=== PATIENT | male | born 1970 | race Caucasian/White ===

== ENCOUNTER 2025-11-22 12:41 | Emergency (ER) | payer OTHER, SELFPAY ==
[2025-11-22] VITALS (27 sets, daily range): BP systolic 110–169; BP diastolic 59–98; PULSE 81–114; RESP 12–45; TEMP 31–37.5; O2SAT 83–97; BMI 50.4
--- NOTE | 2025-11-22 13:29 | DI.RAD.S_ITS ---
P the ROCEDURE: XR CHEST 1V INDICATIONS: Shortness of breath TECHNIQUE: One view of the chest was acquired. COMPARISON: None. FINDINGS: Surgical changes and devices: None. Lungs and pleura: Eventration right hemidiaphragm. Diffuse interstitial prominence. Suggestion of mild central vascular congestion. Hazy opacities of the bilateral costophrenic angles suggestive of small pleural effusions. No pneumothorax. Mediastinum: Mediastinal contours appear normal. Heart size is enlarged. Bones and chest wall: No suspicious bony lesions. Overlying soft tissues appear unremarkable. IMPRESSION: Cardiomegaly with findings consistent with pulmonary edema/CHF. Dictated by: Tyrese Wetzel M.D. on 11/22/2025 at 14:36 Approved by: Tyrese Wetzel M.D. on 11/22/2025 at 14:37
--- NOTE | 2025-11-22 13:29 | EKG_ITS ---
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
[2025-11-22] MEDS: ALBUTEROL/IPRATROPIUM 3 ML AMPUL INH (13:48)
[2025-11-22 14:07] LABS: Hematocrit 46.5 % (41-53); Hemoglobin 15.7 g/dL (13.5-17.5); Mean Corpuscular HGB Conc 33.8 % (30-36); Mean Corpuscular Hemoglobin 28.7 PG (26-34); Mean Corpuscular Volume 84.8 fL (80-100); Platelet Count 124 X10^3/uL (150-400)
[2025-11-22 14:09] LABS: INR 1.1 (0.9-1.3); Prothrombin Time 13.0 SECONDS (9.4-12.5)
[2025-11-22 14:11] LABS: Add Manual Diff / Slide Review YES
[2025-11-22 14:23] LABS: Alanine Aminotransferase 64 IU/L (<50); Albumin 3.3 g/dL (3.5-5.0); Albumin Globulin Ratio 1.0 (1.0-2.8); Alkaline Phosphatase 107 U/L (38-126); Blood Urea Nitrogen 19 mg/dL (9-20); Calcium 8.4 mg/dL (8.4-10.2); Carbon Dioxide 28 mmol/L (22-32); Chloride 98 mmol/L (98-107); Estimated Glomerular Filt Rate > 60 mL/min (>60); Globulin 3.2 g/dL (1.7-4.1); Glucose 105 mg/dL (70-99); HEMOLYSIS 28 (0-50); Potassium 4.1 mmol/L (3.4-5.1); Sodium 134 mmol/L (137-145); Total Protein 6.5 g/dL (6.3-8.2)
[2025-11-22 14:25] LABS: Lactate (Lactic Acid) 1.8 mmol/L (0.7-2.1)
[2025-11-22 14:35] LABS: NT-proBNP (BNP-Adult 18+) 4080 pg/mL (<125); Troponin I 0.022 ng/mL (0.01-0.034)
[2025-11-22 14:41] LABS: Atypical Lymphocytes Percent 22.0 %; Band Neutrophils Percent 1.0 % (3-7); Basophils Percent Manual 1.0 % (0-1); Lymphocytes Percent Manual 31.0 % (25-45); Monocytes Percent Manual 12.0 % (2-11); Neutrophils Absolute Manual 5882 /uL (3000-5900); Procalcitonin 0.359 ng/mL (<0.5); Segmented Neutrophils Percent 33.0 % (38-70); Total Cells Counted 100
[2025-11-22 14:42] LABS: Anisocytosis 1+; Microcytosis 1+
--- NOTE | 2025-11-22 14:53 | DI.US.S_ITS ---
PROCEDURE: US PERIPH VENOUS LOW EXTREM RT INDICATIONS: swelling TECHNIQUE: Real-time imaging, as well as color and pulse Doppler interrogation, were performed of the lower extremity deep veins from the inguinal ligament to the popliteal fossa, with documentation of the visualized calf veins. COMPARISON: None. FINDINGS: The common femoral, femoral, popliteal, and the visualized calf veins are normally compressible, and free of intraluminal thrombus. Color and pulse Doppler demonstrate normal phasic intraluminal flow. There is normal augmentation response to distal compression maneuver. Calf veins are poorly visualized. Greater saphenous vein not visualized as patient terminated exam early. IMPRESSION: No findings of lower extremity deep venous thrombosis. Dictated by: Truong Alonso M.D. on 11/22/2025 at 15:58 Approved by: Truong Alonso M.D. on 11/22/2025 at 15:59
--- NOTE | 2025-11-22 15:09 | ED.SOB ---
HPI - SOB/Dyspnea General Chief Complaint: Shortness of Breath/Dyspnea Stated Complaint: [facility] ref, couldn't regulate oxygen Time Seen by Provider: 11/22/25 13:42 Source: patient Mode of arrival: Ambulatory Limitations: no limitations History of Present Illness HPI Narrative: 55-year-old gentleman morbidly obese smoker presents with cough shortness breath dyspnea on exertion that has been ongoing since Thanksgiving worse in the past week. Cough initially was productive but now nonproductive, but denies any fever, chills, bodyaches, sore throat, back pain, chest pain, abdominal pain, nausea, vomiting diarrhea, constipation, leg pain, or leg swelling. He has not seen a doctor in over 10 years in his not on any medicines other than Viagra for which he took his last dose a month ago. Related Data Allergies Allergy/AdvReac Type Severity Reaction Status Date / Time No Known Drug Allergies Allergy Verified 11/22/25 13:24 Review of Systems Review of Systems ROS Unobtainable: All systems reviewed & are unremarkable except as noted in HPI and below Exam Narrative Exam Narrative: GENERAL: [84] year old patient appears stated age. Well-developed patient, in mild distress. HEAD: Atraumatic. Normocephalic. EYES: Pupils equal round and reactive. Extraocular motions intact. No scleral icterus. No injection or drainage. ENT: Nose without bleeding, purulent drainage. Throat without erythema, tonsillar hypertrophy or exudate. Airway patent. NECK: Trachea midline. Non tender CARDIOVASCULAR: Regular rate and rhythm without murmurs, gallops, or rubs. RESPIRATORY: Clear to auscultation. Breath sounds equal bilaterally. No wheezes, rales, or rhonchi. GASTROINTESTINAL: Abdomen soft, non-tender, nondistended. EXTREMITIES: No edema or joint tenderness. BACK: Nontender without deformity or crepitance. No flank tenderness. NEURO: AOx3. SKIN: No rash or erythema of visible areas Initial Vital Signs Initial Vital Signs: Vital Signs Temperature 99.5 F 11/22/25 13:22 Pulse Rate 114 H 11/22/25 13:22 Respiratory Rate 26 H 11/22/25 13:22 Blood Pressure 114/72 11/22/25 13:22 Pulse Oximetry 84 L 11/22/25 13:22 Oxygen Delivery Method Room Air 11/22/25 13:22 Course Orders Ordered: Discontinued Medications Albuterol/Ipratropium (Albuterol/Ipratropium 3 Ml Ampul) 3 ml INH NOW ONE Stop: 11/22/25 13:46 Last Admin: 11/22/25 13:48 Dose: 3 ml Documented By: SHAHID Apixaban (Apixaban 5 Mg Tablet) 10 mg PO NOW ONE Stop: 11/22/25 17:10 Last Admin: 11/22/25 18:20 Dose: Not Given Documented By: MELODY Furosemide (Furosemide 40 Mg/4 Ml Vial) 40 mg IV NOW ONE Stop: 11/22/25 15:12 Last Admin: 11/22/25 15:19 Dose: 40 mg Documented By: MELODY Heparin Sodium (Porcine) (Heparin 5,000 Unit/Ml Vial) 10,000 unit 60 unit/kg (98062 unit) IV NOW ONE Stop: 11/22/25 17:23 Last Admin: 11/22/25 18:20 Dose: 10,000 unit Documented By: MELODY Ceftriaxone Sodium 2,000 mg/ (Sodium Chloride) 100 mls @ 200 mls/hr IV NOW ONE Stop: 11/22/25 15:19 Last Infusion: 11/22/25 16:20 Dose: Infused Documented By: Admin: 11/22/25 15:49 Dose: 200 mls/hr Documented By: MELODY Heparin Sodium/Dextrose (Heparin Drip) 25,000 unit in 500 mls @ 60.745 mls/hr IV CONT JES; Protocol Last Admin: 11/22/25 20:41 Dose: 11.85 units/kg/hr, 40 mls/hr Documented By: MELODY Co-signed By: HAZEL Vital Signs Vital signs: Vital Signs - 8 hr 11/22/25 14:30 11/22/25 14:30 11/22/25 15:00 Pulse Rate 101 H 102 H Respiratory Rate Blood Pressure 141/68 H Pulse Oximetry 93 Oxygen Delivery Method Oxygen Flow Rate Fraction of Inspired Oxygen 11/22/25 15:01 11/22/25 15:01 11/22/25 15:35 Pulse Rate 101 H 103 H Respiratory Rate 41 H Blood Pressure 169/98 H Pulse Oximetry 93 83 L Oxygen Delivery Method Nasal Cannula Oxygen Flow Rate 6 Fraction of Inspired Oxygen 11/22/25 15:36 11/22/25 15:36 11/22/25 16:00 Pulse Rate 105 H 81 Respiratory Rate 45 H Blood Pressure 169/85 H Pulse Oximetry 85 L 89 L Oxygen Delivery Method Oxygen Flow Rate Fraction of Inspired Oxygen 11/22/25 16:30 11/22/25 16:30 11/22/25 17:00 Pulse Rate 104 H 100 H Respiratory Rate Blood Pressure 169/85 H Pulse Oximetry 97 89 L Oxygen Delivery Method Nasal Cannula Oxygen Flow Rate 4 Fraction of Inspired Oxygen 40 11/22/25 17:30 11/22/25 18:00 11/22/25 18:30 Pulse Rate 95 H 100 H 97 H Respiratory Rate Blood Pressure Pulse Oximetry 92 87 L 93 Oxygen Delivery Method Oxygen Flow Rate Fraction of Inspired Oxygen 11/22/25 19:00 11/22/25 19:30 11/22/25 20:00 Pulse Rate 98 H 99 H 102 H Respiratory Rate Blood Pressure Pulse Oximetry 93 92 88 L Oxygen Delivery Method Nasal Cannula Oxygen Flow Rate 5 Fraction of Inspired Oxygen 11/22/25 20:30 11/22/25 21:00 11/22/25 21:30 Pulse Rate 97 H 95 H 97 H Respiratory Rate Blood Pressure Pulse Oximetry 89 L 90 L 94 Oxygen Delivery Method Nasal Cannula Nasal Cannula Oxygen Flow Rate 5 5 Fraction of Inspired Oxygen MDM - SOB/Dyspnea Lab Data 11/22/25 13:41 11/22/25 13:41 Labs: Lab Results 11/22/25 11/22/25 11/22/25 Range/Units 13:41 15:22 15:29 WBC 17.3 H (4.5-11.0) X10^3/uL RBC 5.48 (4.5-5.9) X10^6/uL Hgb 15.7 (13.5-17.5) g/dL Hct 46.5 (41-53) % MCV 84.8 (80-100) fL MCH 28.7 (26-34) PG MCHC 33.8 (30-36) % RDW 14.7 (11.6-14.8) % Plt Count 124 L (150-400) X10^3/uL Neut % (Auto) Not Reportable Lymph % (Auto) Not Reportable [place] % (Auto) Not Reportable Eos % (Auto) Not Reportable Baso % (Auto) Not Reportable Lymph # (Auto) Not Reportable [place] # (Auto) Not Reportable Baso # (Auto) Not Reportable Total Counted 100 Seg Neutrophils % 33.0 L (38-70) % Band Neutrophils % 1.0 L (3-7) % Lymphocytes % (Manual) 31.0 (25-45) % Atypical Lymphs % 22.0 H ( - 0) % Monocytes % (Manual) 12.0 H (2-11) % Basophils % (Manual) 1.0 (0-1) % Neutrophils # (Manual) 5882 (6966-2374) /uL RBC Morphology See below Anisocytosis 1+ H Microcytosis 1+ H PT 13.0 H (9.4-12.5) SECONDS INR 1.1 (0.9-1.3) VBG pH 7.46 H (7.33-7.43) VBG pCO2 40.0 L (45-50) mmHg VBG pO2 30 L (35-45) mmHg VBG HCO3 29 H (24-28) mmol/L VBG Total CO2 27 (24-29) mmol/L VBG O2 Saturation 62 L (70-75) % VBG Base Excess 4.4 H (0-4) mmol/L Sodium 134 L (137-145) mmol/L Potassium 4.1 (3.4-5.1) mmol/L Chloride 98 (98-107) mmol/L Carbon Dioxide 28 (22-32) mmol/L BUN 19 (9-20) mg/dL Creatinine 1.31 H (0.66-1.25) mg/dL Estimated GFR > 60 (>60) mL/min BUN/Creatinine Ratio 14.5 (6-22) Glucose 105 H (70-99) mg/dL Lactate 1.8 (0.7-2.1) mmol/L Calcium 8.4 (8.4-10.2) mg/dL Total Bilirubin 0.8 (0.2-1.3) mg/dL AST 49 (17-59) IU/L ALT 64 H (<50) IU/L Alkaline Phosphatase 107 (38-126) U/L Troponin I 0.022 (0.01-0.034) ng/mL NT-Pro-B Natriuret Pep 4080 H (<125) pg/mL Total Protein 6.5 (6.3-8.2) g/dL Albumin 3.3 L (3.5-5.0) g/dL Globulin 3.2 (1.7-4.1) g/dL Albumin/Globulin Ratio 1.0 (1.0-2.8) Procalcitonin 0.359 (<0.5) ng/mL Chlamy pneumoniae PCR Not detected (Not Detect) Adenovirus (PCR) Not detected (Not Detect) B. pertussis DNA (PCR) Not detected (Not Detect) B.parapertussis DNA PCR Not detected (Not Detecte) Coronavirus OC43 (PCR) Not detected (Not Detect) Coronavirus HKU1 (PCR) Not detected (Not Detect) Coronavirus 229E (PCR) Not detected (Not Detect) SARS-CoV-2 (PCR) Not detected (Not Detecte) Coronavirus NL63 (PCR) Not detected (Not Detect) Human Metapneumovir PCR Not detected (Not Detect) Influenza Type A (PCR) Not detected (Not Detect) Influenza Type B (PCR) Not detected (Not Detect) M. pneumoniae (PCR) Not detected (Not Detect) Parainfluenza 1 (PCR) Not detected (Not Detect) Parainfluenza 2 (PCR) Not detected (Not Detect) Parainfluenza 3 (PCR) Not detected (Not Detect) Parainfluenza 4 (PCR) Not detected (Not Detect) RSV (PCR) Not detected (Not Detect) Entero/Rhino (PCR) Not detected (Not Detect) 11/22/25 Range/Units 16:16 WBC (4.5-11.0) X10^3/uL RBC (4.5-5.9) X10^6/uL Hgb (13.5-17.5) g/dL Hct (41-53) % MCV (80-100) fL MCH (26-34) PG MCHC (30-36) % RDW (11.6-14.8) % Plt Count (150-400) X10^3/uL Neut % (Auto) Lymph % (Auto) [place] % (Auto) Eos % (Auto) Baso % (Auto) Lymph # (Auto) [place] # (Auto) Baso # (Auto) Total Counted Seg Neutrophils % (38-70) % Band Neutrophils % (3-7) % Lymphocytes % (Manual) (25-45) % Atypical Lymphs % ( - 0) % Monocytes % (Manual) (2-11) % Basophils % (Manual) (0-1) % Neutrophils # (Manual) (0261-5294) /uL RBC Morphology Anisocytosis Microcytosis PT (9.4-12.5) SECONDS INR (0.9-1.3) VBG pH (7.33-7.43) VBG pCO2 (45-50) mmHg VBG pO2 (35-45) mmHg VBG HCO3 (24-28) mmol/L VBG Total CO2 (24-29) mmol/L VBG O2 Saturation (70-75) % VBG Base Excess (0-4) mmol/L Sodium (137-145) mmol/L Potassium (3.4-5.1) mmol/L Chloride (98-107) mmol/L Carbon Dioxide (22-32) mmol/L BUN (9-20) mg/dL Creatinine (0.66-1.25) mg/dL Estimated GFR (>60) mL/min BUN/Creatinine Ratio (6-22) Glucose (70-99) mg/dL Lactate 1.9 (0.7-2.1) mmol/L Calcium (8.4-10.2) mg/dL Total Bilirubin (0.2-1.3) mg/dL AST (17-59) IU/L ALT (<50) IU/L Alkaline Phosphatase (38-126) U/L Troponin I 0.024 (0.01-0.034) ng/mL NT-Pro-B Natriuret Pep (<125) pg/mL Total Protein (6.3-8.2) g/dL Albumin (3.5-5.0) g/dL Globulin (1.7-4.1) g/dL Albumin/Globulin Ratio (1.0-2.8) Procalcitonin (<0.5) ng/mL Chlamy pneumoniae PCR (Not Detect) Adenovirus (PCR) (Not Detect) B. pertussis DNA (PCR) (Not Detect) B.parapertussis DNA PCR (Not Detecte) Coronavirus OC43 (PCR) (Not Detect) Coronavirus HKU1 (PCR) (Not Detect) Coronavirus 229E (PCR) (Not Detect) SARS-CoV-2 (PCR) (Not Detecte) Coronavirus NL63 (PCR) (Not Detect) Human Metapneumovir PCR (Not Detect) Influenza Type A (PCR) (Not Detect) Influenza Type B (PCR) (Not Detect) M. pneumoniae (PCR) (Not Detect) Parainfluenza 1 (PCR) (Not Detect) Parainfluenza 2 (PCR) (Not Detect) Parainfluenza 3 (PCR) (Not Detect) Parainfluenza 4 (PCR) (Not Detect) RSV (PCR) (Not Detect) Entero/Rhino (PCR) (Not Detect) Imaging Data Chest x-ray: Radiologist's Impression: [place] [address] XRay Report Signed Patient: Tyrese Good MR#: [id number] : 1970 Acct:[id number] Age/Sex: 55 / M Date of Service: 11/22/25 Loc: ED Accession Number: [id number] Procedure: XR chest 1V Ordering Provider: Saida Pang D.O. the ROCEDURE: XR CHEST 1V INDICATIONS: Shortness of breath TECHNIQUE: One view of the chest was acquired. COMPARISON: None. FINDINGS: Surgical changes and devices: None. Lungs and pleura: Eventration right hemidiaphragm. Diffuse interstitial prominence. Suggestion of mild central vascular congestion. Hazy opacities of the bilateral costophrenic angles suggestive of small pleural effusions. No pneumothorax. Mediastinum: Mediastinal contours appear normal. Heart size is enlarged. Bones and chest wall: No suspicious bony lesions. Overlying soft tissues appear unremarkable. IMPRESSION: Cardiomegaly with findings consistent with pulmonary edema/CHF. Dictated by: Tyrese Wetzel M.D. on 11/22/2025 at 14:36 Approved by: Tyrese Wetzel M.D. on 11/22/2025 at 14:37 US - DVT: Radiologist's Impression: [address] [address] Ultrasound Report Signed Patient: Tyrese Good MR#: [id number] : 1970 Acct:[id number] Age/Sex: 55 / M Date of Service: 11/22/25 Loc: ED Accession Number: [id number] Procedure: US periph venous low extrem rt Ordering Provider: Amelia Benedict PA-C PROCEDURE: US PERIPH VENOUS LOW EXTREM RT INDICATIONS: swelling TECHNIQUE: Real-time imaging, as well as color and pulse Doppler interrogation, were performed of the lower extremity deep veins from the inguinal ligament to the popliteal fossa, with documentation of the visualized calf veins. COMPARISON: None. FINDINGS: The common femoral, femoral, popliteal, and the visualized calf veins are normally compressible, and free of intraluminal thrombus. Color and pulse Doppler demonstrate normal phasic intraluminal flow. There is normal augmentation response to distal compression maneuver. Calf veins are poorly visualized. Greater saphenous vein not visualized as patient terminated exam early. IMPRESSION: No findings of lower extremity deep venous thrombosis. Dictated by: Truong Alonso M.D. on 11/22/2025 at 15:58 Approved by: Truong Alonso M.D. on 11/22/2025 at 15:59 ECG Data Interpretation: NSR HR 99 AL 140 QRS [address]-st wave MDM Narrative Medical decision making narrative: All labwork, vital signs, hrbp note, med list, previous ER visits, and all imaging studies reviewed. Initial case d/w hospitalist regarding clot removal candidate after speaking with her cards md in [place] but unable to accept in [place] and [facility]. Case d/w Dr. Elias hospitalist [facility]. Pt started on heparin drip here and given bipap, 93% 02 NC 6L. Differential diagnosis STEMI NSTEMI PE pneumothorax CHF. Case d/w IR and DR. Gamino ICU MD not a mechanical thrombectomy candidate. hospitalist has accepted pt for admission. Discharge Plan Departure Patient Disposition: [facility] Clinical Impression: Pulmonary embolism
--- NOTE | 2025-11-22 15:18 | DI.CT.S_ITS ---
PROCEDURE: CT ANGIO CHEST PE PROTOCOL INDICATIONS: sob delgado/ low 02 TECHNIQUE: After the administration of intravenous contrast, 2 mm thick sections acquired from the pulmonary apices to the posterior costophrenic angles. 3-dimensional maximum intensity projection (MIP) coronal and sagittal reformats were then acquired through the thorax. For radiation dose reduction, the following was used: automated exposure control, adjustment of mA and/or kV according to patient size. COMPARISON: [facility], CR, XR CHEST 1V, 11/22/2025, 13:34. FINDINGS: Image quality: There is suboptimal timing of contrast bolus limiting evaluation of the pulmonary arteries. The pulmonary arteries were adequately visualized to level of the proximal segmental pulmonary arteries. Pulmonary arteries: There are intraluminal filling defects noted in the distal segmental pulmonary arteries of the right lower lobe and likely medial right upper lobe. These are noted centrally and compatible with acute pulmonary emboli. Findings are not well visualized secondary to suboptimal timing of intravenous contrast. No definite pulmonary emboli seen on the left. Enlargement of the main pulmonary artery measuring 3.9 cm in diameter with minimal reflux of contrast into the IVC. No definite flattening of the interventricular septum. Acute right-sided heart strain not excluded. Lower Neck: No enlarged lymph nodes. Thyroid: No thyroid nodules which require sonographic follow up, per consensus guidelines. Axillae: No enlarged lymph nodes. Chest Wall: Unremarkable. Bones: Visualized osseous structures appear intact without acute fracture or focal destructive lesion. No acute compression fractures of the imaged spine. Lungs and Pleura: No pneumothorax. No significant pleural effusion. Mild patchy ground-glass opacities of the right lung apex. Numerous patchy ill-defined ground-glass opacities of the left upper lobe, and left lower lobe identified. These are most pronounced in the left upper lobe. Mild bibasilar atelectasis. No septal nodularity. Visualized airways appear patent. Heart: Mild cardiomegaly. No pericardial effusion. Coronary atherosclerotic vascular calcifications are noted. Thoracic Vessels: No aortic aneurysm. Mediastinum and [place]: No enlarged lymph nodes. Esophagus: No wall thickening. No hiatal hernia. Upper Abdomen: Splenomegaly. Other visualized upper abdomen solid organs and bowel loops appear unremarkable. IMPRESSION: Acute pulmonary emboli noted in the distal segmental pulmonary arteries of the right lower lobe and likely right upper lobe. There is mild enlargement of the main pulmonary artery with minimal reflux of contrast into the IVC. Possible flattening of the interventricular septum. Findings are suggestive of acute right-sided heart strain. Recommend clinical correlation. Further evaluation with echocardiogram can be considered. Multiple scattered left greater than right ill-defined ground-glass opacities most numerous in the left upper lobe. These are favored to represent inflammatory/infectious nodules. Recommend short interval follow-up CT in 3 months to document stability versus resolution. Mild cardiomegaly. Coronary atherosclerosis. Splenomegaly. Findings were discussed with Dr. Ritter at 1707 hrs. Dictated by: Tyrese Wetzel M.D. on 11/22/2025 at 16:56 Approved by: Tyrese Wetzel M.D. on 11/22/2025 at 17:10
[2025-11-22] MEDS: FUROSEMIDE 40 MG/4 ML VIAL IV (15:19)
[2025-11-22 15:32] LABS: Base Excess VBG 4.4 mmol/L (0-4); HCO3 VBG 29 mmol/L (24-28); Oxygen Saturation VBG 62 % (70-75); PCO2 VBG 40.0 mmHg (45-50); PO2 VBG 30 mmHg (35-45); Total CO2 VBG 27 mmol/L (24-29); pH VBG 7.46 (7.33-7.43)
[2025-11-22] MEDS: cefTRIAXone 2,000 MG in SODIUM CHLORIDE 0.9% 100 ML 200 MG IV (15:49)
[2025-11-22 16:40] LABS: Lactate (Lactic Acid) 1.9 mmol/L (0.7-2.1)
[2025-11-22 16:51] LABS: Troponin I 0.024 ng/mL (0.01-0.034)
[2025-11-22] MEDS: HEPARIN 5,000 UNIT/ML VIAL 10000 UNIT IV (18:20)
[2025-11-22 19:25] LABS: Coronavirus NL 63 Not Detected (Not Detect); SARS- CoV-2 Not Detected (Not Detecte)
--- NOTE | 2025-11-22 19:42 | P.HP_ITS ---
History of Present Illness History of Present Illness Date Patient Seen: 11/22/25 Time Patient Seen: 18:00 Chief complaint: [place] [facility] ref, couldn't regulate oxygen Narrative: HPI 55-year-old male with no significant past medical history who presented to the emergency room with shortness of breath, dyspnea on exertion, and cough for several weeks. The patient notes that shortly after Thanksgiving he developed a viral upper respiratory infection and that the cough has persisted. It is generally dry but occasionally he produces white to cordova sputum. Denies any fevers or chest pain. Notes that the shortness of breath has been progressive and he is now short of breath all the time. His exercise tolerance has decreased and he is quite fatigued. He has not had any GI symptoms. He denies peripheral edema. He has not had any recent flights, prolonged car rides, or recent procedures. He does note that he is more sedentary over the last month with his illness and then at baseline his job is very sedentary. He does not smoke tobacco but does vape marijuana on a regular basis. In the emergency room he was found to be tachycardic, hypertensive, and hypoxic and required 6 L with an FiO2 of 40% to maintain his oxygen saturation. Laboratory studies notable for WBC 17.3 with 22% atypical lymphocytes. Venous blood gas with pH 7.46, CO2 40, PO2 30. CMP notable for creatinine 1.31, ALT 64, BNP 4080. Chest x-ray with cardiomegaly and pulmonary edema. CTA with acute pulmonary emboli noted in the distal segmental pulmonary arteries of the right lower lobe and likely right upper lobe. There is mild enlargement of the main pulmonary artery with minimal reflux of contrast into the IVC. There is possible flattening of the intraventricular septum. All these findings were concerning for right ventricular strain. A right lower extremity duplex was done in the ER and there is no evidence of DVT. Review of systems Fourteen system review of systems performed and pertinent positives and negatives noted in the HPI. Otherwise review of systems negative. Past medical history Erectile dysfunction, obesity Past surgical history None Medications Viagra as needed Allergies No known drug allergies Social history The patient is . His and daughter are both present in the emergency room. The patient does not drink alcohol. He does not utilize tobacco. But he does vape marijuana on a regular basis. Physical exam Vitals reviewed, afebrile, 169/85, 101 beats per minute, 18 breaths per minute, 93% on 6 L with an FiO2 of 40% Alert and oriented, well-developed, no acute distress Tachycardic, regular rhythm, no murmurs Coarse breath sounds right base, otherwise clear to auscultation, mild conversational dyspnea Soft, nondistended, positive bowel sounds Warm, trace ankle and pedal edema, calves are soft, on the medial surface of the distal right lower extremity there is an area of erythema without fluctuance or tenderness Grossly nonfocal neuro exam Pleasant cooperative Laboratory studies: Pertinent laboratory studies are detailed under the HPI. Imaging studies: Imaging studies are detailed under the HPI. EKG: Reviewed by me, Normal sinus rhythm, no findings consistent with RV strain Assessment and plan Pulmonary emboli Acute hypoxic respiratory failure 55-year-old male with no significant past medical history presents with shortness of breath at rest and dyspnea on exertion. He was found to be tachycardic and hypoxic. Evaluation notable for diagnosis of acute pulmonary emboli. The patient is a candidate for clot retrieval given the evidence of RV strain on CT. Unfortunately unable to get an echocardiogram done here tonight to further elucidate the RV strain. The case was discussed with Dr. Jey Gabriel, cardiology at [facility] in [place]. Although [facility] has the ability to do clot retrieval, they currently do not have the capacity due to staffing issues. Dr. Gabriel suggested that [facility] or [facility] may have the capacity. The patient was given the option of staying here for heparin drip with transition to oral anticoagulants [place]. The patient would prefer to pursue intervention for clot retrieval. This was discussed with the emergency room physician, Dr. Ritter, and the ER staff will work on arranging transfer. If the patient is unable to transfer, then the hospitalist team will be happy to admit him here for further evaluation. If the patient admits here the following is the plan: * Heparin drip * Transitioned to oral anticoagulants and 24-36 hours * Duplex of the left lower extremity to rule out DVT on that side, as only the right lower extremity was imaged in the emergency room * Echocardiogram Leukocytosis with 22% atypical lymphocytes The patient's white blood cell count is 17.3 which could be reactive due to the pulmonary emboli. However with the 22% atypical lymphocytes and a new PE, I am concerned about possible underlying bone marrow process. * Repeat CBC in the morning with manual differential * If leukocytosis or elevated atypical lymphocytes persist, will need further evaluation by Hematology Cellulitis Patient has an area of erythema on the distal right medial lower extremity concerning for cellulitis. * Ceftriaxone Time spent: 75 minutes spent in chart review, patient evaluation, coordination of care with Cardiology and the ER provider, and documentation. Meds Home Medications and Allergies Allergies Allergy/AdvReac Type Severity Reaction Status Date / Time No Known Drug Allergies Allergy Verified 11/22/25 13:24 Exam Vital Signs (past 8 hours): - 11/22/25 13:22 11/22/25 13:46 11/22/25 13:47 Temperature 99.5 F Pulse Rate 114 H 101 H 99 H Respiratory Rate 26 H Blood Pressure 114/72 Pulse Oximetry 84 L 90 L 89 L Oxygen Delivery Method Room Air Oxygen Flow Rate 5 5 Fraction of Inspired Oxygen 11/22/25 13:47 11/22/25 13:57 11/22/25 14:00 Temperature Pulse Rate 101 H Respiratory Rate 18 Blood Pressure 125/59 L 134/59 L Pulse Oximetry 96 Oxygen Delivery Method Nasal Cannula Oxygen Flow Rate 4 Fraction of Inspired Oxygen 11/22/25 14:00 11/22/25 14:30 11/22/25 14:30 Temperature Pulse Rate 101 H 101 H Respiratory Rate Blood Pressure 141/68 H Pulse Oximetry 87 L Oxygen Delivery Method Oxygen Flow Rate 5 Fraction of Inspired Oxygen 11/22/25 15:00 11/22/25 15:01 11/22/25 15:01 Temperature Pulse Rate 102 H 101 H Respiratory Rate Blood Pressure 169/98 H Pulse Oximetry 93 93 Oxygen Delivery Method Nasal Cannula Oxygen Flow Rate 6 Fraction of Inspired Oxygen 11/22/25 16:30 Temperature Pulse Rate Respiratory Rate Blood Pressure 169/85 H Pulse Oximetry Oxygen Delivery Method Oxygen Flow Rate Fraction of Inspired Oxygen 40 Fraction of Inspired Oxygen 40 Oxygen Delivery Method Nasal Cannula Oxygen Flow Rate 6 Objective Labs 11/22/25 13:41 11/22/25 13:41 Labs: Laboratory Results - last 24 hr 11/22/25 11/22/25 11/22/25 13:41 15:22 15:29 WBC 17.3 H RBC 5.48 Hgb 15.7 Hct 46.5 MCV 84.8 MCH 28.7 MCHC 33.8 RDW 14.7 Plt Count 124 L Neut % (Auto) Not Reportable Lymph % (Auto) Not Reportable [place] % (Auto) Not Reportable Eos % (Auto) Not Reportable Baso % (Auto) Not Reportable Lymph # (Auto) Not Reportable [place] # (Auto) Not Reportable Baso # (Auto) Not Reportable Total Counted 100 Seg Neutrophils % 33.0 L Band Neutrophils % 1.0 L Lymphocytes % (Manual) 31.0 Atypical Lymphs % 22.0 H Monocytes % (Manual) 12.0 H Basophils % (Manual) 1.0 Neutrophils # (Manual) 5882 RBC Morphology See below Anisocytosis 1+ H Microcytosis 1+ H PT 13.0 H INR 1.1 VBG pH 7.46 H VBG pCO2 40.0 L VBG pO2 30 L VBG HCO3 29 H VBG Total CO2 27 VBG O2 Saturation 62 L VBG Base Excess 4.4 H Sodium 134 L Potassium 4.1 Chloride 98 Carbon Dioxide 28 BUN 19 Creatinine 1.31 H Estimated GFR > 60 BUN/Creatinine Ratio 14.5 Glucose 105 H Lactate 1.8 Calcium 8.4 Total Bilirubin 0.8 AST 49 ALT 64 H Alkaline Phosphatase 107 Troponin I 0.022 NT-Pro-B Natriuret Pep 4080 H Total Protein 6.5 Albumin 3.3 L Globulin 3.2 Albumin/Globulin Ratio 1.0 Procalcitonin 0.359 Chlamy pneumoniae PCR Not detected Adenovirus (PCR) Not detected B. pertussis DNA (PCR) Not detected B.parapertussis DNA PCR Not detected Coronavirus OC43 (PCR) Not detected Coronavirus HKU1 (PCR) Not detected Coronavirus 229E (PCR) Not detected SARS-CoV-2 (PCR) Not detected Coronavirus NL63 (PCR) Not detected Human Metapneumovir PCR Not detected Influenza Type A (PCR) Not detected Influenza Type B (PCR) Not detected M. pneumoniae (PCR) Not detected Parainfluenza 1 (PCR) Not detected Parainfluenza 2 (PCR) Not detected Parainfluenza 3 (PCR) Not detected Parainfluenza 4 (PCR) Not detected RSV (PCR) Not detected Entero/Rhino (PCR) Not detected 11/22/25 16:16 WBC RBC Hgb Hct MCV MCH MCHC RDW Plt Count Neut % (Auto) Lymph % (Auto) [place] % (Auto) Eos % (Auto) Baso % (Auto) Lymph # (Auto) [place] # (Auto) Baso # (Auto) Total Counted Seg Neutrophils % Band Neutrophils % Lymphocytes % (Manual) Atypical Lymphs % Monocytes % (Manual) Basophils % (Manual) Neutrophils # (Manual) RBC Morphology Anisocytosis Microcytosis PT INR VBG pH VBG pCO2 VBG pO2 VBG HCO3 VBG Total CO2 VBG O2 Saturation VBG Base Excess Sodium Potassium Chloride Carbon Dioxide BUN Creatinine Estimated GFR BUN/Creatinine Ratio Glucose Lactate 1.9 Calcium Total Bilirubin AST ALT Alkaline Phosphatase Troponin I 0.024 NT-Pro-B Natriuret Pep Total Protein Albumin Globulin Albumin/Globulin Ratio Procalcitonin Chlamy pneumoniae PCR Adenovirus (PCR) B. pertussis DNA (PCR) B.parapertussis DNA PCR Coronavirus OC43 (PCR) Coronavirus HKU1 (PCR) Coronavirus 229E (PCR) SARS-CoV-2 (PCR) Coronavirus NL63 (PCR) Human Metapneumovir PCR Influenza Type A (PCR) Influenza Type B (PCR) M. pneumoniae (PCR) Parainfluenza 1 (PCR) Parainfluenza 2 (PCR) Parainfluenza 3 (PCR) Parainfluenza 4 (PCR) RSV (PCR) Entero/Rhino (PCR) Assessment & Plan Time-Based Coding :: [TOTAL MINUTES] spent with patient and on the chart (including review of chart, obtaining history, exam, reviewing outside data, placing orders, documenting exam and treatment plan, and counseling patient) on [DATE].
[2025-11-22] MEDS: HEPARIN DRIP 25,000 UNIT/500 ML IV.SOLN 40 UNIT IV (20:41)
[2025-11-23] VITALS: BP 113/68; PULSE 96; O2SAT 91
[2025-11-23 00:30] VITALS: BP 118/68; PULSE 97; O2SAT 94
[2025-11-24 05:01] LABS: Acinetobacter calcoa-baumannii Not Detected (Not Detect); Bacteroides fragilis Not Detected (Not Detect); Candida auris Not Detected (Not Detect); Candida glabrata Not Detected (Not Detect); Cryptococcus neoformans/gatti Not Detected (Not Detect); Enterobacterales Not Detected (Not Detect); Enterococcus faecalis Not Detected (Not Detect); Enterococcus faecium Not Detected (Not Detect); Klebsiella aerogenes Not Detected (Not Detect); Proteus species Not Detected (Not Detect); Serratia marcescens Not Detected (Not Detect); Staphylococcus epidermidis Not Detected (Not Detect); Staphylococcus lugdunensis Not Detected (Not Detect); Staphylococcus species Not Detected (Not Detect); Stenotrophomonas maltophilia Not Detected (Not Detect); Streptococcus agalactiae (Gr B Not Detected (Not Detect); Streptococcus pneumonia Not Detected (Not Detect); Streptococcus pyogenes (Gr A) Not Detected (Not Detect); Streptococcus species Not Detected (Not Detect)
== END 2025-11-23 01:01 | disposition short-term general hospital (02) ==
PROVIDERS: Emergency Medicine; Emergency Provider Family Medicine
DX: I26.99 Other pulmonary embolism without acute cor pulmonale (principal); R05.9 Cough, unspecified; E66.01 Morbid (severe) obesity due to excess calories; Z72.0 Tobacco use
CPT/HCPCS: 36415; 71045; 71275; 80053; 82805; 83605; 83880; 84145; 84484; 85007; 85025; 85610; 87040; 87154; 87633; 93005; 93010; 93971; 94640; 94660; 96365; 96375; 96376; 99285; J0696; J1644; J1938; J7050; Q9967